=== PATIENT | female | born 1935 | race Caucasian/White ===

== ENCOUNTER 2017-07-22 23:39 | Emergency (ER) | payer MEDICAID ==
[~2017-07-22] VITALS: Ht 152.4 cm; Wt 79.0 kg
[2017-07-23] MEDS ORDERED: ENALAPRIL 2.5MG/2ML VIAL 2ML IV ONE (00:45)
[2017-07-23 01:06] LABS: BASOPHILS % 0.8 % (0.0-2.0); EOSINOPHILS % 2.8 % (0.0-5.0); HEMATOCRIT. 40.5 % (36.0-48.0); HEMOGLOBIN. 13.6 g/dL (12.0-16.0); LYMPHOCYTES % 44.7 % (20.0-50.0); MEAN CORPUSCULAR HEMOGLOBIN 27.1 pg (28.0-32.0); MEAN PLATELET VOLUME 9.5 fl (7.4-10.4); MONOCYTES % 6.2 % (2.0-8.0); NEUTROPHILS % 45.5 % (40.0-76.0); PLATELET 237 x1000/uL (130-400)
[2017-07-23] MEDS ORDERED: HYDROCODONE/ACETAMINOPHEN 5/325MG TABLET PO SCH (01:15)
[2017-07-23 03:07] VITALS: BP 143/75
== END 2017-07-23 03:22 | disposition home or self-care (01) ==
LOC: ER 23:39
DX: I10 Essential (primary) hypertension (principal); R51 Headache; I51.7 Cardiomegaly
CPT/HCPCS: 36415; 70450; 71010; 80048; 85025; 93005; 96374; 99285; J3490; Z7610

== ENCOUNTER 2018-06-03 00:28 | Emergency (ER) | payer MEDICAID ==
[~2018-06-03] VITALS: Ht 160 cm; Wt 79.0 kg
[2018-06-03] MEDS ORDERED: ASPIRIN 81MG TABLET PO ONE (01:45)
[2018-06-03 02:21] LABS: BASOPHILS % 0.8 % (0.0-2.0); EOSINOPHILS % 2.2 % (0.0-5.0); HEMATOCRIT. 39.4 % (36.0-48.0); HEMOGLOBIN. 13.3 g/dL (12.0-16.0); MEAN CORPUSCULAR HEMOGLOBIN 26.9 pg (28.0-32.0); MEAN CORPUSCULAR VOLUME 79.6 fL (81.0-99.0); MONOCYTES % 9.1 % (2.0-8.0); NEUTROPHILS % 51.9 % (40.0-76.0); PLATELET 190 x1000/uL (130-400); RED BLOOD CELL COUNT 4.95 mill/uL (4.2-5.4); RED CELL DISTRIBUTION WIDTH 15.2 % (11.6-14.6)
[2018-06-03 02:22] LABS: CHLORIDE 87 mEq/L (98-107)
[2018-06-03] MEDS ORDERED: MORPHINE SULFATE 4 MG/ML CPJ (NOT FOR IM USE) IV ONE (03:00)
[2018-06-03] MEDS ORDERED: POTASSIUM CHLORIDE INJ 40 MEQ in DEXT 5% WATER 250 ML IV NR (03:30)
[2018-06-03] MEDS ORDERED: IOHEXOL-350 100 ML BOTTLE ONE (05:31)
[2018-06-03 09:22] VITALS: BP 161/75
== END 2018-06-03 09:32 | disposition home or self-care (01) ==
LOC: ER 00:28
DX: I10 Essential (primary) hypertension (principal); M54.2 Cervicalgia
CPT/HCPCS: 36415; 71045; 71275; 74174; 80053; 83880; 84484; 85025; 93005; 96374; 99285; J2270; J3480; Q9967; J7060